=== PATIENT | female | born 1995 | race Caucasian/White ===

== ENCOUNTER 2017-03-28 20:37 | Emergency (ER) | payer MEDICAID, OTHER ==
[~2017-03-28] VITALS: Ht 157.5 cm; Wt 89.5 kg
[~2017-03-28 20:37] MED LIST: ACET50TA PO; IBUP-1114 PO; PRENTAB9 PO
[2017-03-28 20:38] VITALS: BP 142/67
[2017-03-28] MEDS ORDERED: NITR100C39 PO (20:49)
[2017-03-28] MEDS ORDERED: AZITHROMYCIN 250 MG TAB PO ONE (21:30)
[2017-03-28] MEDS ORDERED: ALBUTEROL 90 MCG/ACT 8GM HFA INHALER INH ONE (21:30)
[2017-03-28] MEDS ORDERED: ZITHTAB PO (21:40)
[2017-03-28] MEDS ORDERED: ALBU17IN2 INH (21:40)
== END 2017-03-28 21:55 | disposition home or self-care (01) ==
LOC: M ED 20:37
DX: O99.53 Diseases of the respiratory system complicating the puerperium (principal); O23.593 Infection of other part of genital tract in pregnancy, third trimester; Z3A.31 31 weeks gestation of pregnancy; Z79.899 Other long term (current) drug therapy

== ENCOUNTER 2017-04-13 13:21 | Emergency (ER) | payer OTHER ==
[~2017-04-13] VITALS: Ht 157.5 cm; Wt 100.4 kg
[~2017-04-13 13:21] MED LIST changes: +ALBU17IN2 INH; +NITR100C39 PO; +ZITHTAB PO
[2017-04-13] MEDS ORDERED: CHEW500C2 PO (13:28)
[2017-04-13] MEDS ORDERED: PRENTAB55 PO (13:28)
[2017-04-13] MEDS ORDERED: LIDOCAINE 2% MDV 20 ML VIAL SC ONE (14:15)
[2017-04-13] MEDS ORDERED: CEPH500T PO (14:49)
[2017-04-13] MEDS ORDERED: ACYC800T PO (14:49)
[2017-04-13 15:00] VITALS: BP 140/77
== END 2017-04-13 15:01 | disposition home or self-care (01) ==
LOC: M ED 13:21
DX: O99.713 Diseases of the skin and subcutaneous tissue complicating pregnancy, third trimester (principal); O23.593 Infection of other part of genital tract in pregnancy, third trimester; O99.513 Diseases of the respiratory system complicating pregnancy, third trimester; Z3A.34 34 weeks gestation of pregnancy; O99.333 Smoking (tobacco) complicating pregnancy, third trimester; Z79.899 Other long term (current) drug therapy

== ENCOUNTER 2017-05-05 21:06 | Outpatient (CLI) | payer OTHER ==
[~2017-05-05] VITALS: Ht 157.5 cm; Wt 103.0 kg
[~2017-05-05 21:06] MED LIST changes: +ACYC800T PO; +CEPH500T PO; +CHEW500C2 PO; +PRENTAB55 PO
[2017-05-05 21:20] VITALS: BP 132/59
== END 2017-05-05 22:45 | disposition home or self-care (01) ==
LOC: M LDO 21:06
PROVIDERS: ATTEND Obstetrics & Gynecology
DX: O26.893 Other specified pregnancy related conditions, third trimester (principal); R10.9 Unspecified abdominal pain; O47.03 False labor before 37 completed weeks of gestation, third trimester; Z3A.36 36 weeks gestation of pregnancy

== ENCOUNTER → 2017-05-10 | Outpatient (REF) | payer OTHER ==
[~2017-05-10] MED LIST changes: +ANTA500C PO; +OMEP40CA2 PO
== END ==
LOC: M LAB REF 13:06
PROVIDERS: ATTEND Advanced Practice Midwife
DX: Z34.83 Encounter for supervision of other normal pregnancy, third trimester (principal)

== ENCOUNTER 2017-05-31 12:22 | Inpatient (IN) | payer OTHER ==
[~2017-05-31] VITALS: Ht 157.5 cm; Wt 106.6 kg
[~2017-05-31 12:22] MED LIST changes: -ANTA500C PO; -OMEP40CA2 PO
[2017-05-31] MEDS ORDERED: OMEP40CA2 PO (12:57)
[2017-05-31] MEDS ORDERED: ANTA500C PO (12:57)
[2017-05-31] MEDS ORDERED: LACTATED RINGER'S 1000 ML IV STA (13:44)
[2017-05-31] MEDS ORDERED: LR 1,000 ML IV SCH ×2 (13:44→14:00)
[2017-05-31] MEDS ORDERED: OXYTOCIN DRIP 30 UNITS in APPROPRIATE DILUENT 1 EA IV SCH (14:00)
--- NOTE | 2017-05-31 14:41 | HPEPDOC ---
[facility] Medical History & Physical Date of Admission May 31, 2017 Attending Physician: Yvonne Garcia CNM History and Physical HISTORY & PHYSICAL EXAMINATION 21-year-old, 3, para 1011, at 40-2/7 weeks gestation by first trimester sonogram performed at 6 weeks 6 days on 10/09/2016 for an estimated date of delivery of 05/29/2017 presents for elective induction of labor at term. Upon evaluation, she is 3 cm, 50 % effaced, -3 station. She reports active movement. Denies loss of fluid or bleeding. Last normal menstrual period unknown. care was initiated in [place]. Transferred to a woman's perspective at 37 weeks. She has received sporadic care . Prepregnancy weight was reportedly 147. Last in office weight 238. She has been normotensive through the . Last office visit was at 39 weeks 5 days on 05/27/2017. Anatomy scan within normal limits. OBSTETRIC HISTORY: 2015 early miscarriage. July 2016, normal spontaneous vaginal delivery at term, 5 lbs. 15 oz. female. Reports depression. ALLERGIES: No known drug allergies. MEDICAL HISTORY: Asthma, depression, seasonal allergies FAMILY HISTORY: Mental illness, diabetes, thyroid disorders and autism. SOCIAL HISTORY: Single. Family is present and supportive. Reports smoking one half pack per day during . Denies alcohol or drug usage. OBJECTIVE: Labs are O+, antibody negative. Initial hemoglobin and hematocrit 11.1, and 33.8 with platelets of 253. Rubella non-immune. VDRL, hepatitis B, hepatitis C, HIV, gonorrhea, Chlamydia all negative. She was determined to be negative for cystic fibrosis carrier. She was too late for genetic screening. Glucose screen was not performed. Group B strep is negative. VITAL SIGNS: Stable. She is in no apparent distress, coping well. Breast exam was deferred. Abdomen is soft, nontender, gravid, longitudinal lie, vertex by Julian. Contractions none noted on monitor. heart 145, moderate variability with accelerations, category 1 tracing. Sterile vaginal exam: 3 cm, 50 % effaced, -3 station, intact membranes and cephalic. ASSESSMENT: 21-year-old, 3 para 1011 at 40 weeks. 2 days gestation, for elective induction of labor, category 1 tracing. PLAN: Admit per consultation Dr. Al, who is aware of patient's status. Pitocin induction of labor. Patient is considering IV pain management versus epidural. Anticipate normal spontaneous vaginal . Laboratory Data Labs 24H Laboratory Tests 2 05/31/17 13:37: Serology Scanned Report Hepatitis B Testing Admission labs are pending Home Medications Scheduled Omeprazole (Omeprazole) 40 Mg Cap, 40 MG PO DAILY Miscellaneous Medications Calcium Carbonate (Antacid) 500 Mg Chw, 500 MG PO Allergies Coded Allergies: No Known Allergies (Unverified , 04/13/17) Yvonne Garcia CNM May 31, 2017 14:40
[2017-05-31] MEDS ORDERED: ACETAMINOPHEN 500 MG TAB PO PRN (15:45)
[2017-05-31 16:05] LABS: MEAN CORPUSCULAR HEMOGLOBIN 28.5 pg (27.0-33.0); MEAN CORPUSCULAR HGB CONC 32.4 g/dl (32.0-36.5); RED CELL DISTRIBUTION WIDTH 15.3 % (11.5-14.5); WHITE BLOOD COUNT 8.6 10^3/uL (4.0-10.0)
[2017-05-31 19:14] VITALS: BP 118/75
--- NOTE | 2017-05-31 19:43 | IPNPDOC ---
Date Seen The patient was seen on 05/31/17. Progress Note SUBJECTIVE: Patient is a 21-year-old @ 40w2d for IOL. OBJECTIVE PHYSICAL EXAMINATION: VITAL SIGNS: Please see below. GENERAL: Coping well RESPIRATORY: Breathing with UC ABDOMINAL: UC 2-4 minutes apart. FH 145, moderate variability, + accels. Pitocin @ 8mu SVE: 3/80/-2, more anterior, presenting part well applied to cervix PSYCHOLOGICAL: Family present and supportive. A: Cat I tracing. Labor progress P: Continue Pitocin. Consider AROM VS, I&O, 24H, Fishbone Vital Signs/I&O Vital Signs Date Time Temp Pulse Resp B/P (MAP) Pulse Ox O2 Delivery O2 Flow Rate FiO2 05/31/17 19:14 72 118/75 (89) Laboratory Data 24H LABS Laboratory Tests 2 05/31/17 13:37: Serology Scanned Report Hepatitis B Testing 05/31/17 15:09: Urine Amphetamines Screen NEGATIVE, Urine Benzodiazepines Screen NEGATIVE, Urine Opiates Screen NEGATIVE, Urine Methadone Screen NEGATIVE, Urine Barbiturates Screen NEGATIVE, Urine Phencyclidine Screen NEGATIVE, Urine Cocaine Metabolite Screen NEGATIVE, Urine Cannabinoids Screen NEGATIVE CBC/BMP Laboratory Tests 05/31/17 15:50 Red Blood Count 3.93 L, Mean Corpuscular Volume 88.0, Mean Corpuscular Hemoglobin 28.5, Mean Corpuscular Hemoglobin Concent 32.4, Red Cell Distribution Width 15.3 H Yvonne Garcia CNM May 31, 2017 19:43
[2017-05-31 20:11] VITALS: BP 108/74
[2017-05-31] MEDS ORDERED: FIORICET TAB PO ONE (20:15)
--- NOTE | 2017-05-31 21:19 | DS.PDOC ---
Discharge Summary General Date of Admission May 31, 2017 at 12:22 Date of Discharge 05/31/2017 Attending Physician: Yvonne Garcia CNM Discharge Summary PROCEDURES PERFORMED DURING STAY: None. ADMITTING DIAGNOSES: 1. . @ 40w2d for elective induction of labor DISCHARGE DIAGNOSES: 1. IUP @ [id number]. 2. Reassuring maternal status. 3. . COMPLICATIONS/CHIEF COMPLAINT: Induction at patient request. Discharge at patient request. HISTORY OF PRESENT ILLNESS: A 21-year-old 3, para 1011, admitted at 40 weeks 2 days for elective induction of labor at patient request due to hip pain. care was started in [place]. Patient transferred to woman's perspective at 37 weeks. She requested induction due to severe hip pain. HOSPITAL COURSE: After a reactive nonstress test, Pitocin induction of labor was initiated after consultation with Dr. Al. After approximately 6 hours of Pitocin. heart remained reassuring. Contractions were every 2-4 minutes. Patient was without discomfort. She was requesting discharge. I consulted Dr. Al. In view of normotensive patient's status and reassuring maternal status, it was decided that patient could be discharged home. DISCHARGE MEDICATIONS: Please see below. ALLERGIES: Please see below. PHYSICAL EXAMINATION ON DISCHARGE: VITAL SIGNS: Please see below. GENERAL: No apparent distress HEENT: Noncontributory ABDOMINAL EXAMINATION: Abdomen soft, gravid, longitudinal lie contractions diminishing after Pitocin was discontinued. heart remained reassuring, category 1. Fetus active SVE: 3+/80/-2, more midline. Cephalic. Membranes intact. LABORATORY DATA: Please see below. ACTIVITY: Routine precautions were reviewed. Patient instructed to call the office on Saturday for an appointment. Daily kick counts were stressed. DIET: Regular. DISCHARGE PLAN: Discharge home, signs of labor and warnings were reviewed. Daily daily kick counts reviewed. Induction rescheduled at 41 weeks. DISPOSITION: Home DISCHARGE CONDITION: Stable. Vital Signs/I&Os Vital Signs Date Time Temp Pulse Resp B/P (MAP) Pulse Ox O2 Delivery O2 Flow Rate FiO2 05/31/17 20:15 18 05/31/17 20:11 63 108/74 (85) Laboratory Data Labs 24H Laboratory Tests 2 05/31/17 13:37: Serology Scanned Report Hepatitis B Testing 05/31/17 15:09: Urine Amphetamines Screen NEGATIVE, Urine Benzodiazepines Screen NEGATIVE, Urine Opiates Screen NEGATIVE, Urine Methadone Screen NEGATIVE, Urine Barbiturates Screen NEGATIVE, Urine Phencyclidine Screen NEGATIVE, Urine Cocaine Metabolite Screen NEGATIVE, Urine Cannabinoids Screen NEGATIVE CBC/BMP Laboratory Tests 05/31/17 15:50 Red Blood Count 3.93 L, Mean Corpuscular Volume 88.0, Mean Corpuscular Hemoglobin 28.5, Mean Corpuscular Hemoglobin Concent 32.4, Red Cell Distribution Width 15.3 H Discharge Medications Scheduled Omeprazole (Omeprazole) 40 Mg Cap, 40 MG PO DAILY, (Reported) Miscellaneous Medications Calcium Carbonate (Antacid) 500 Mg Chw, 500 MG PO, (Reported) Allergies Coded Allergies: No Known Allergies (Unverified , 04/13/17) Yvonne Garcia CNM May 31, 2017 21:19
[2017-06-01] MEDS ORDERED: ADACEL/BOOSTRIX VACCINE (DIPHTH/PERTUSS/ACELL/TETANUS)0.5ML SYR (90715) IM ONE (09:00)
[2017-06-02] MEDS ORDERED: INFLUENZA QUADRIVALENT PF VACCINE 0.5ML SYRINGE (90686) IM ONE (09:00)
== END 2017-05-31 21:35 | disposition home or self-care (01) | DRG 566 ==
LOC: M LDI 12:22
PROVIDERS: ADMIT Advanced Practice Midwife; ATTEND Advanced Practice Midwife
PROC: 3E033VJ Introduction of Other Hormone into Peripheral Vein, Percutaneous Approach (ICD-10-PCS; principal; 2017-05-31)
DX: O48.0 Post-term pregnancy (principal); O26.893 Other specified pregnancy related conditions, third trimester; F17.200 Nicotine dependence, unspecified, uncomplicated; Z3A.40 40 weeks gestation of pregnancy; O99.334 Smoking (tobacco) complicating childbirth; Z79.899 Other long term (current) drug therapy; O61.0 Failed medical induction of labor; M25.559 Pain in unspecified hip

== ENCOUNTER 2017-06-03 03:16 | Inpatient (IN) | payer OTHER ==
[2017-06-03] VITALS (12 sets, daily range): BP systolic 107–130; BP diastolic 55–69
[~2017-06-03] VITALS: Ht 157.5 cm; Wt 109.0 kg
[~2017-06-03 03:16] MED LIST changes: +ANTA500C PO; +OMEP40CA2 PO
[2017-06-03] MEDS ORDERED: LACTATED RINGER'S 1000 ML IV STA (04:11)
[2017-06-03] MEDS ORDERED: LR 1,000 ML IV SCH (04:11)
[2017-06-03] MEDS ORDERED: BUTORPHANOL 2 MG/ML INJ (J0595) IV ONE (04:15)
[2017-06-03] MEDS ORDERED: PROMETHAZINE INJ 25 MG/ML VIAL (J2550) IV ONE (04:15)
[2017-06-03] MEDS ORDERED: OXYTOCIN DRIP 30 UNITS in APPROPRIATE DILUENT 1 EA IV SCH (04:15)
--- NOTE | 2017-06-03 04:38 | HPEPDOC ---
[facility] Medical History & Physical Date of Admission Jun 03, 2017 Other Provider Yvonne Garcia CNM History and Physical CHIEF COMPLAINT: Labor HISTORY OF PRESENT ILLNESS: 21-year-old 3, para 1011, estimated date of delivery 05/29/2017, presents at 40 weeks and 5 days with complaints of contractions and increased mucous discharge. Fetus is active. Last menstrual period unknown dated by sonogram on 10/09/2016 at 6 weeks 6 days for an estimated date of delivery of 05/29/2017. Anatomy scan within normal limits. Initial care was obtained in [place]; transferred to woman's perspective at 37 weeks. She had sporadic care OB HISTORY: 2014, early miscarriage. July 2016 normal spontaneous vaginal delivery, viable female child at 40 weeks, 5 lbs. 15 oz. PAST MEDICAL HISTORY: 1. depression. 2. Asthma. PAST SURGICAL HISTORY: 1. None. SOCIAL HISTORY: Marital status: Single. Resides in: [place] Children: 1 Tobacco use: Reports one half pack per day during ETOH: Denies Illicit drug use: Denies Other relevant social factors: Poor compliance with care FAMILY HISTORY: Diabetes, mental illness, thyroid disease, and autism ALLERGIES: Please see below. HOME MEDICATIONS: Please see below. PHYSICAL EXAMINATION: VITAL SIGNS: Vital signs as below GENERAL APPEARANCE: Mild discomfort. Obese HEENT: Within normal limits. CARDIOVASCULAR: Heart rate regular. ABDOMEN: Soft, gravid, longitudinal lie. Contractions every 5-7 minutes, mild to palpation. heart 145, moderate variability with accelerations Sterile vaginal exam unchanged from Saturday 3-4 cm, 80% effaced, -3 station LABORATORY DATA: See below. labs O+, antibody negative, rubella nonimmune, VDRL, hep B, hep C, HIV, gonorrhea and chlamydia were all negative. Cystic fibrosis carrier negative. Glucose test was not done, and group B strep is negative. Prepregnancy weight was reported at 147 pounds. Weight upon transfer to woman's perspective was 230 pounds. Last office weight was 238 pounds. MICROBIOLOGY: Please see below. ASSESSMENT: A 21-year-old 3, para 1011 at 40 weeks and 5 days gestation in early labor. Category 1 tracing. . PLAN: 1. Admit IV and labs to be drawn. Augmentation of labor with Pitocin. Patient desires IV pain management at this time. Anticipate normal spontaneous vaginal delivery. Laboratory Data Labs 24H Laboratory Tests 2 06/03/17 04:12: Serology Scanned Report Hepatitis B Testing Home Medications Scheduled Omeprazole (Omeprazole) 40 Mg Cap, 40 MG PO DAILY Miscellaneous Medications Calcium Carbonate (Antacid) 500 Mg Chw, 500 MG PO Allergies Coded Allergies: No Known Allergies (Unverified , 04/13/17) Yvonne Garcia CNM Jun 03, 2017 04:38
[2017-06-03 05:37] LABS: MEAN CORPUSCULAR HEMOGLOBIN 28.8 pg (27.0-33.0); MEAN CORPUSCULAR HGB CONC 32.9 g/dl (32.0-36.5); MEAN CORPUSCULAR VOLUME 87.5 fl (80.0-96.0); RED CELL DISTRIBUTION WIDTH 15.5 % (11.5-14.5); WHITE BLOOD COUNT 11.5 10^3/uL (4.0-10.0)
[2017-06-03 07:25] LABS: CORD GAS ABE A -7.6; CORD GAS HCO3 A 21.2 MEQ/L; CORD GAS O2 SAT A 77.2 %; CORD GAS PCO2 A 54.8 mmHg; CORD GAS PH A 7.206 UNITS; CORD GAS PO2 A 36.3 mmHg; CORD GAS TCO2 A 22.9 MEQ/L
[2017-06-03 07:26] LABS: CORD GAS ABE V -6.8; CORD GAS HCO3 V 18.6 MEQ/L; CORD GAS O2 SAT V 88.6 %; CORD GAS PCO2 V 37.7 mmHg; CORD GAS PH V 7.312 UNITS; CORD GAS PO2 V 45.9 mmHg; CORD GAS SBC V 18.9 MEQ/L; CORD GAS TCO2 V 19.8 MEQ/L
--- NOTE | 2017-06-03 07:33 | IPNPDOC ---
Text Note Date of Service The patient was seen on 06/03/17. NOTE Delivery Note Date of Service 06/03/2017 21 year old 3, para 2, 012, spontaneous onset of labor at 40 weeks 5 days. Spontaneous rupture of membranes June 03 at 4 AM, clear, moderate amount. Utilized Stadol and Phenergan for labor coping. Multiple deep variable and late decelerations nonresponsive to IV fluid hydration, oxygen by mask and position change. Dr. Al requested to attend. Rim of cervix reduced with maternal pushing and bearing down efforts @ 0640. Fully dilated O6 40. Dr Al arrived in room with . Viable male delivered in TIMBO without difficulty at 0 648. Spontaneous respirations with stimulation. Transitioned on maternal abdomen. Cord doubly clamped and cut by grandmother under my direction once pulsations ceased. scores 9 and 9. Placenta Gray intact with 3-vessel cord at 0654. Marginal cord insertion noted. Multiple calcifications. Fundus firmed with massage and intravenous pitocin bolus. Estimated blood loss 350 mL. Perineum, cervix and vagina inspected. First degree left sulcus laceration noted, repaired with 3-0 Vicryl Rapide after infiltration with lidocaine. Sponge, sharp and instrument count correct. weight 7 pounds 7 ounces, 3380 grams. Cord gases are pending. VS,Fishbone, I+O VS, Fishbone, I+O Laboratory Tests 06/03/17 05:30 Red Blood Count 3.51 L, Mean Corpuscular Volume 87.5, Mean Corpuscular Hemoglobin 28.8, Mean Corpuscular Hemoglobin Concent 32.9, Red Cell Distribution Width 15.5 H Vital Signs Date Time Temp Pulse Resp B/P (MAP) Pulse Ox O2 Delivery O2 Flow Rate FiO2 06/03/17 05:51 20 06/03/17 05:42 85 128/68 (88) 06/03/17 03:39 98.3 I&O- Last 24 Hours up to 6 AM 06/04/17 06:00 Output Total 350 ml Balance -350 ml Yvonne Garcia CNM Jun 03, 2017 07:31
[2017-06-03] MEDS ORDERED: METHYLERGONOVINE MALEATE 0.2 MG TAB PO PRN (07:45)
[2017-06-03] MEDS ORDERED: LIDOCAINE 1% MDV INJ 50 ML VIAL INFIL ONE (07:45)
[2017-06-03] MEDS ORDERED: DIBUCAINE 1% OINTMENT 30GM TOP PRN (07:45)
[2017-06-03] MEDS ORDERED: ANUSOL HC CREAM 30GM TOP PRN (07:45)
[2017-06-03] MEDS ORDERED: ACETAMINOPHEN 500 MG TAB PO PRN (07:45)
[2017-06-03] MEDS ORDERED: MEASLES,MUMPS,RUBELLA VACCINE INJ (MMR-II) (90707) SC SCH (07:45)
[2017-06-03] MEDS ORDERED: RHOGAM 300 MCG (1500 IU) INJ (J2790) IM SCH (07:45)
[2017-06-03] MEDS ORDERED: MOM 30ML SUSPENSION UDC PO PRN (07:45)
[2017-06-03] MEDS ORDERED: DOCUSATE SODIUM 100 MG CAP PO PRN (07:45)
[2017-06-03] MEDS ORDERED: medroxyPROGESTERone ACET IM SUSP 150 MG/ML VIAL (J1050) IM ONE (07:45)
[2017-06-03] MEDS: PRENATAL VITAMINS CHEWABLE TABLET PO SCH (10:12)
[2017-06-03] MEDS: IBUPROFEN 800 MG TAB PO PRN ×2 (17:04→20:09)
[2017-06-04 06:02] VITALS: BP 111/58
[2017-06-04] MEDS: PRENATAL VITAMINS CHEWABLE TABLET PO SCH (07:45)
[2017-06-04] MEDS: IBUPROFEN 800 MG TAB PO PRN (07:45)
[2017-06-04] MEDS ORDERED: ACET50TA PO (09:45)
[2017-06-04] MEDS ORDERED: IBUP-1114 PO (09:46)
[2017-06-04] MEDS ORDERED: medroxyPROGESTERone ACET IM SUSP 150 MG/ML VIAL (J1050) IM ONE (10:15)
[2017-06-04] MEDS ORDERED: ADACEL/BOOSTRIX VACCINE (DIPHTH/PERTUSS/ACELL/TETANUS)0.5ML SYR (90715) IM ONE (10:30)
[2017-06-04] MEDS ORDERED: INFLUENZA QUADRIVALENT PF VACCINE 0.5ML SYRINGE (90686) IM ONE (10:30)
[2017-06-07 00:07] LABS: GC Butalbital 416 ng/mL (Cutoff=200)
== END 2017-06-04 10:30 | disposition home or self-care (01) | DRG 560 ==
LOC: M LDO 03:16 → M LDI 04:09 → M OBS 08:45
PROVIDERS: ADMIT Advanced Practice Midwife; ATTEND Advanced Practice Midwife
PROC: 10E0XZZ Delivery of Products of Conception, External Approach (ICD-10-PCS; principal; 2017-06-03)
PROC: 0HQ9XZZ Repair Perineum Skin, External Approach (ICD-10-PCS; 2017-06-03)
PROC: 3E033VJ Introduction of Other Hormone into Peripheral Vein, Percutaneous Approach (ICD-10-PCS; 2017-06-03)
DX: O48.0 Post-term pregnancy (principal); Z37.0 Single live birth; Z3A.40 40 weeks gestation of pregnancy; F17.200 Nicotine dependence, unspecified, uncomplicated; O99.334 Smoking (tobacco) complicating childbirth; Z91.19 Patient's noncompliance with other medical treatment and regimen; O09.33 Supervision of pregnancy with insufficient antenatal care, third trimester; O70.0 First degree perineal laceration during delivery

== ENCOUNTER 2017-09-01 11:34 | Emergency (ER) | payer OTHER ==
[2017-09-01] MEDS ORDERED: diazePAM 5 MG TAB PO (15:45)
[2017-09-01] MEDS: predniSONE 20 MG TAB PO (16:04)
[2017-09-01] MEDS: NORCO, ANEXSIA 5/325MG TABLET (HYDROcodone/ACETAMINOPHEN) PO (16:04)
[2017-09-01] MEDS: NORCO 5/325MG TABLET (BULK FOR ED) PO (17:00)
== END 2017-09-01 17:10 | disposition home or self-care (01) ==
LOC: M ED 11:34
DX: M54.9 Dorsalgia, unspecified (principal); G89.29 Other chronic pain; R51 Headache; J45.909 Unspecified asthma, uncomplicated; F41.9 Anxiety disorder, unspecified; F32.9 Major depressive disorder, single episode, unspecified; F17.200 Nicotine dependence, unspecified, uncomplicated
CPT/HCPCS: 99283

== ENCOUNTER 2018-09-09 22:24 | Outpatient (CLI) | payer OTHER ==
[~2018-09-09] VITALS: Ht 157.5 cm; Wt 101.0 kg
[~2018-09-09 22:24] MED LIST changes: -ACET50TA PO; +CYCL5TAB; +FLUO40CA; +KETO10TAB; +MAPA500T2 PO; +NORCOTAB PO; +PRED20TA PO; +VALI5TAB PO
[2018-09-10 00:27] VITALS: BP 134/73
== END 2018-09-10 00:15 | disposition home or self-care (01) ==
LOC: M LDO 22:24
PROVIDERS: ATTEND Specialist
DX: O99.89 Other specified diseases and conditions complicating pregnancy, childbirth and the puerperium (principal); R60.0 Localized edema; R10.9 Unspecified abdominal pain; Z3A.37 37 weeks gestation of pregnancy

== ENCOUNTER 2018-09-16 19:47 | Outpatient (CLI) | payer OTHER ==
[~2018-09-16] VITALS: Ht 157.5 cm; Wt 100.9 kg
[2018-09-16 20:03] VITALS: BP 94/48
[2018-09-16 21:03] VITALS: BP 139/76
[2018-09-16 21:10] VITALS: BP 121/74
== END 2018-09-16 23:55 | disposition home or self-care (01) ==
LOC: M LDO 19:47
PROVIDERS: ATTEND Obstetrics & Gynecology
DX: O47.9 False labor, unspecified (principal); Z3A.38 38 weeks gestation of pregnancy

== ENCOUNTER 2018-09-25 23:34 | Outpatient (CLI) | payer OTHER ==
[~2018-09-25] VITALS: Ht 157.5 cm; Wt 100.5 kg
[2018-09-26 00:01] VITALS: BP 133/61
== END 2018-09-26 02:55 | disposition home or self-care (01) ==
LOC: M LDO 23:34
PROVIDERS: ATTEND Obstetrics & Gynecology
DX: O47.1 False labor at or after 37 completed weeks of gestation (principal); Z3A.39 39 weeks gestation of pregnancy

== ENCOUNTER 2018-09-29 14:14 | Inpatient (IN) | payer OTHER ==
[~2018-09-29] VITALS: Ht 157.5 cm; Wt 100.5 kg
[2018-09-29] VITALS (12 sets, daily range): BP systolic 87–130; BP diastolic 50–77
[2018-09-29] MEDS ORDERED: PENICILLIN G POTASSIUM IV 5 MU in D5W MINI-BAG PLUS 100 ML IV STA (15:37)
[2018-09-29] MEDS ORDERED: OXYTOCIN DRIP 30 UNITS in APPROPRIATE DILUENT 1 EA IV SCH (15:45)
--- NOTE | 2018-09-29 17:01 | HPEPDOC ---
Obstetrical History & Physical General Date of Admission Sep 29, 2018 at 15:47 Primary Care Physician: WALLY JIN CNM History of Present Illness Patient is a 23-year-old female who is a at 40.2 weeks gestation with an ESTELLA of 09/27/18 based off of her LMP. She initiated care in her first trimester in [place]. She has had a total of 6 visits. She presented to L&D via ambulance with complaints of contractions. She reports active movement and declines leaking of fluid or vaginal bleeding. She has not been compliant with care. Chief Complaint: Active Labor Information Provided By: Patient Age: 23 : 4 Term: 2 Pre-term: 0 Abortions: 1 Livin Care Care: Limited Care Dating Final EDC: Sep 27, 2018 Final EDC by: LMP LMP: Dec 20, 2017 EGA at Admission: 40.2 Antepartum Course Height (inches): 62 Pre- weight (lbs.): 230 Admission Weight (lbs.): 220 Past Medical History Past Obstetrical History #1: Date of Delivery: Apr 22, 2015 Complications: Yes (SAB) Past Obstetrical History #2: Date of Delivery: Jul 11, 2016 Gestation: 40 Type of Delivery: Spontaneous Vaginal Del. Sex of : Female (5 lbs 15 oz) Complications: Yes (SGA) Past Obstetrical History #3: Past Obstetrical History: Multigravida Date of Delivery: Jun 03, 2017 Gestation: 40 Type of Delivery: Spontaneous Vaginal Del. Sex of Infant: Male (7 lbs. 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 Past Medical History Medical History Asthma and seasonal allergies Family History Significant Family History: Asthma, Hypertension Social History Social history complex social issues; FOB is incarcerated; patient's highest level of education is 10th grade; Marital Status: Single Psychosocial History: Anxiety, Depression * Smoker: current smoker Alcohol: Denies Imunizations Tdap status: current Allergies Coded Allergies: No Known Allergies (Unverified , 09/26/18) Medications No Active Prescriptions or Reported Meds Physical Examination Physical Examination GENERAL: Alert and oriented times three. BREAST: . ABDOMEN: Gravid and non-tender to touch. FETUS: Is vertex (VTX) by sterile vaginal examination (SVE), fetus is vertex (VTX) by Julian. HEART RATE: Regular rate and rhythm. LUNGS: Clear to auscultation (CTA). EXTREMITIES: No edema. No clonus. Deep tendon reflexes (DTRs) + 2. Vital Signs/I&O Vital Signs Date Time Temp Pulse Resp B/P (MAP) Pulse Ox O2 Delivery O2 Flow Rate FiO2 09/29/18 15:32 85 18 121/73 (89) 09/29/18 14:37 98.8 Laboratory Data 24H LABS Laboratory Tests 2 09/29/18 16:36: Serology Scanned Report Hepatitis B Testing Microbiology Microbiology 09/29/18 Group B Streptococcus Screen (LANI), Received Pending Pertinent Laboratoy Data Blood Type: O+ RBC Antibody Screen: Negative HIV: Negative Hepatitis B: Negative Rapid Plasma Reagin: Nonreactive Rubella: Immune Group B Streptococcus: Unknown Vaginal Examination Dilation: 4 cm Effacement: other (75%) Station: -3 Cervical Consistency: Soft Cervical Position: Middle Presentation: Cephalic presentation Position: Vertex (occiput) Assessment Heart Rate (FHR): 130 Variability: Moderate Accelerations: Positive Decelerations: None Tocometer Contractions: Yes Frequency: regular Multi-drug resistant Organism: No history of MDRO Assessment/Plan Assessment IUP at 40.2 weeks gestation active labor unknown GBS Category I FHR tracing Plan Admit to L&D. OOB ad josette. Diet: regular then change to clears with start of IV Pitocin. Labs and intravenous (IV) per unit protocol. GBS obtained. Will be treated for GBS prophylaxis. Counseled on Pitocin for augmentation if needed. Anesthesia consult per patient's request. Anticipate cervical change and . WALLY JIN CNM Sep 29, 2018 17:01
[2018-09-29] MEDS: LR 1,000 ML IV SCH (17:17)
[2018-09-29 17:24] LABS: HEMATOCRIT 32.2 % (36.0-47.0); HEMOGLOBIN 10.8 g/dl (12.0-15.5); MEAN CORPUSCULAR HEMOGLOBIN 30.3 pg (27.0-33.0); MEAN CORPUSCULAR HGB CONC 33.5 g/dl (32.0-36.5); MEAN CORPUSCULAR VOLUME 90.4 fl (80.0-96.0); PLATELET COUNT, AUTOMATED 439 10^3/uL (150-450); RED BLOOD COUNT 3.56 10^6/uL (4.00-5.40); WHITE BLOOD COUNT 9.8 10^3/uL (4.0-10.0)
[2018-09-29] MEDS ORDERED: NICOTINE 21MG/24HR 1 EA TRANSDERMAL TD SCH (21:00)
[2018-09-29] MEDS: PENICILLIN G POTASSIUM IV 2.5 MU in APPROPRIATE DILUENT 1 EA IV SCH (21:06)
[2018-09-29] MEDS ORDERED: PROMETHAZINE INJ 25 MG/ML VIAL (J2550) IV ONE (22:15)
[2018-09-29] MEDS ORDERED: BUTORPHANOL 2 MG/ML INJ (J0595) IV ONE (22:15)
--- NOTE | 2018-09-29 23:16 | IPNPDOC ---
Obstetrical Progress Note Date of Service Sep 29, 2018 Subjective Patient states she wants the Pitocin stopped. States she is very uncomfortable and wants it off so she can get into the shower. Objective Vital Signs Date Time Temp Pulse Resp B/P (MAP) Pulse Ox O2 Delivery O2 Flow Rate FiO2 09/29/18 21:34 88 18 115/66 (82) 09/29/18 20:59 98.5 Assessment Heart Rate (FHR): 120 Variability: Moderate Accelerations: Positive Decelerations: None Heart Rate Tracing: Category I Tocometer Contractions: Yes Frequency: regular, every 1-3 min. Assessment and Plan Age: 23 EGA at Admission: 40.2 Status: Reassuring Group B Streptococcus: Unknown Anticipate: Vaginal Delivery Additional Comments Pitocin turned off per patient's request. Offered IV pain medication or an epidural. Patient just desires to get into the shower to help with her pain. IV saline locked so patient can get into the shower. WALLY JIN CNM Sep 29, 2018 23:15
[2018-09-30] VITALS (38 sets, daily range): BP systolic 93–203; BP diastolic 51–136
[2018-09-30] MEDS: PENICILLIN G POTASSIUM IV 2.5 MU in APPROPRIATE DILUENT 1 EA IV SCH ×3 (01:58→08:59)
[2018-09-30] MEDS: LR 1,000 ML IV SCH ×2 (02:03→08:53)
[2018-09-30] MEDS ORDERED: LR 1,000 ML IV ONE (06:15)
[2018-09-30] MEDS ORDERED: FENTANYL 2MCG/ML ROPIVACAINE 0.2% IN 0.9% NACL 100ML IVBAG As Ordered ONE (07:14)
[2018-09-30] MEDS ORDERED: ePHEDrine SULFATE 25 MG/5 ML(5MG/ML) SYRINGE As Ordered ONE (08:26)
[2018-09-30] MEDS ORDERED: ONDANSETRON 4MG/2ML VIAL (J2405) IV PRN (08:45)
[2018-09-30] MEDS ORDERED: LACTATED RINGER'S 1000 ML IV PRN (08:45)
[2018-09-30] MEDS ORDERED: EPIDURAL/PCA KEYS XX PRN (08:45)
[2018-09-30] MEDS ORDERED: ePHEDrine SULFATE 25 MG/5 ML(5MG/ML) SYRINGE IV PRN (08:45)
[2018-09-30] MEDS ORDERED: NALOXONE INJ 0.4 MG/1 ML VIAL (J2310) IV PRN (08:45)
[2018-09-30] MEDS ORDERED: REFRIGERATOR IV KEYS XX PRN (08:45)
[2018-09-30] MEDS ORDERED: EPIDURAL COMMENT XX SCH (08:45)
[2018-09-30] MEDS ORDERED: diphenhydrAMINE INJ 50MG/ML VIAL (J1200) IV PRN (08:45)
[2018-09-30] MEDS ORDERED: FENTANYL/ROPIVACAINE/NACL BAG 100 ML EPIDURAL SCH (08:45)
[2018-09-30] MEDS: PRENATAL VITAMINS CHEWABLE TABLET PO SCH (09:00)
[2018-09-30] MEDS ORDERED: OXYTOCIN DRIP 30 UNITS in APPROPRIATE DILUENT 1 EA IV SCH (12:35)
[2018-09-30] MEDS ORDERED: ANUSOL HC CREAM 30GM TOP PRN (12:45)
[2018-09-30] MEDS ORDERED: DIBUCAINE 1% OINTMENT 30GM TOP PRN (12:45)
[2018-09-30] MEDS ORDERED: RHOGAM 300 MCG (1500 IU) INJ (J2790) IM SCH (12:45)
[2018-09-30] MEDS ORDERED: MOM 30ML SUSPENSION UDC PO PRN (12:45)
[2018-09-30] MEDS ORDERED: METHYLERGONOVINE MALEATE 0.2 MG TAB PO PRN (12:45)
[2018-09-30] MEDS ORDERED: DOCUSATE SODIUM 100 MG CAP PO PRN (12:45)
[2018-09-30] MEDS ORDERED: MEASLES,MUMPS,RUBELLA VACCINE INJ (MMR-II) (90707) SC SCH (12:45)
--- NOTE | 2018-09-30 18:20 | DN ---
DATE OF PROCEDURE: 09/30/2018 TIME OF : 12:09 GENDER: Female SCORES: 8 and 9. WEIGHT: 2890 grams or 6 pounds 6 ounces. LACERATIONS: None. ESTIMATED BLOOD LOSS: 300 mL. ANESTHESIA: Epidural. COUNTS: Five laparotomy sponges accounted for prior to and after delivery. DELIVERY NOTE: On 09/30/2018 at 12:09 p.m., Ms. Lion, a 23-year-old 4, now para 3 had a spontaneous vaginal delivery of a liveborn female , scores of 8 and 9, weight was 2890 grams or 6 pounds 6 ounces. Head was delivered right occiput anterior (TIMBO) over intact perineum. There was a right compound nuchal arm, which was delivered, along with the anterior shoulder and corpus. Infant was handed to mom with a good cry. Cord was clamped times two, was cut by the support person under my direction. Placenta was then drained and delivered grossly intact. A premixed bag of 500 mL of normal saline was then bolused along with uterine massage until the uterus was firm. On inspection, the cervix, vagina, and perineum was grossly intact and hemostatic. Mom and baby recovering in stable condition. Mom has decided to name her daughter Carol.
[2018-09-30] MEDS: IBUPROFEN 800 MG TAB PO PRN (22:11)
[2018-10-01 06:02] VITALS: BP 125/69
[2018-10-01] MEDS: PRENATAL VITAMINS CHEWABLE TABLET PO SCH (08:06)
[2018-10-01] MEDS ORDERED: NICOTINE 21MG/24HR 1 EA TRANSDERMAL TD SCH (09:00)
[2018-10-01] MEDS: IBUPROFEN 800 MG TAB PO PRN ×2 (09:04→18:28)
[2018-10-01] MEDS: ACETAMINOPHEN 500 MG TAB PO PRN ×2 (10:06→16:36)
[2018-10-01 18:00] VITALS: BP 130/72
[2018-10-02] MEDS: ACETAMINOPHEN 500 MG TAB PO PRN (01:54)
[2018-10-02 06:42] VITALS: BP 126/71
[2018-10-02] MEDS ORDERED: IBUP-1114 PO (08:34)
[2018-10-02] MEDS ORDERED: MAPA500T2 PO (08:34)
[2018-10-02] MEDS ORDERED: PRENTAB9 PO (08:34)
[2018-10-02] MEDS: PRENATAL VITAMINS CHEWABLE TABLET PO SCH (08:41)
[2018-10-02] MEDS: IBUPROFEN 800 MG TAB PO PRN (08:41)
== END 2018-10-02 10:00 | disposition home or self-care (01) | DRG 560 ==
LOC: M LDO 14:14 → M LDI 15:47 → M OBS 09-30 14:35
PROVIDERS: ADMIT Advanced Practice Midwife; ATTEND Advanced Practice Midwife
PROC: 10E0XZZ Delivery of Products of Conception, External Approach (ICD-10-PCS; principal; 2018-09-30)
DX: O48.0 Post-term pregnancy (principal); O32.6XX0 Maternal care for compound presentation, not applicable or unspecified; Z37.0 Single live birth; Z3A.40 40 weeks gestation of pregnancy; O09.33 Supervision of pregnancy with insufficient antenatal care, third trimester

== ENCOUNTER 2019-03-11 14:34 | Emergency (ER) | payer OTHER ==
[~2019-03-11] VITALS: Ht 157.5 cm; Wt 85.9 kg
[~2019-03-11 14:34] MED LIST changes: -ANTA500C PO; +CALC1CHW3 PO; +HYDR-3715 PO; -NORCOTAB PO
[2019-03-11 14:35] VITALS: BP 124/56
[2019-03-11] MEDS ORDERED: DICL10TA PO (14:42)
[2019-03-11] MEDS ORDERED: NS 1,000 ML IV ONE (15:45)
[2019-03-11 16:08] LABS: BASO % 0.3 % (0.0-1.0); EOS # 0.1 10^3/uL (0.0-0.50); EOS % 1.7 % (0.0-3.0); HEMATOCRIT 35.8 % (36.0-47.0); HEMOGLOBIN 11.8 g/dl (12.0-15.5); LYMPH # 1.6 10^3/uL (1.5-6.5); LYMPH % 20.3 % (24.0-44.0); MEAN CORPUSCULAR HEMOGLOBIN 30.2 pg (27.0-33.0); MEAN CORPUSCULAR VOLUME 91.6 fl (80.0-96.0); MONO # 0.6 10^3/uL (0.0-0.8); MONO % 8.4 % (0.0-5.0); NEUTROPHILS # 5.3 10^3/uL (1.8-7.7); NEUTROPHILS % 68.8 % (36.0-66.0); PLATELET COUNT, AUTOMATED 259 10^3/uL (150-450); RED BLOOD COUNT 3.91 10^6/uL (4.00-5.40); WHITE BLOOD COUNT 7.6 10^3/uL (4.0-10.0)
[2019-03-11 16:39] LABS: BLOOD UREA NITROGEN 7 MG/DL (7-18); CALCIUM LEVEL 8.7 MG/DL (8.5-10.1); CARBON DIOXIDE LEVEL 24 MEQ/L (21-32); CHLORIDE LEVEL 107 MEQ/L (98-107); CREATININE FOR GFR 0.66 MG/DL (0.55-1.30); GLOMERULAR FILTRATION RATE > 60.0 (>60); GLUCOSE, FASTING 80 MG/DL (70-100); POTASSIUM SERUM 4.1 MEQ/L (3.5-5.1); SODIUM LEVEL 138 MEQ/L (136-145)
[2019-03-11] MEDS ORDERED: KEFL250C11 PO (17:05)
[2019-03-11 17:27] LABS: HCG, SERUM QUANTITATIVE 35163 MIU/ML
--- NOTE | 2019-03-11 17:47 | REP ---
Emergency first trimester obstetric sonography: History: Abdominal cramping. Findings: Transabdominal scanning demonstrates a single living intrauterine gestation. [place]-rump length of the embryonic pole is 59 mm. This corresponds with a gestational age estimate of 12 weeks 3 days. heart rate is recorded at 153 beats per minute. motion is observed. No gross anomaly is seen. There is a 1.3 x 1.6 x 0.5 cm anechoic fluid collection adjacent to the gestational sac superiorly. There is a 2.0 cm cystic area in the maternal left ovary consistent with corpus luteum. Impression: Viable single intrauterine gestation at 12 weeks 3 days by a crown-rump length. ESTELLA by today's sonography September 20, 2019. There is a 1.6 cm cystic area adjacent to the gestational sac superiorly. Electronically Signed by Jonathan Barrios MD 03/12/2019 07:59 A
== END 2019-03-11 17:00 | disposition left against medical advice (07) ==
LOC: M ED 14:34
DX: O99.89 Other specified diseases and conditions complicating pregnancy, childbirth and the puerperium (principal); R82.71 Bacteriuria; Z3A.12 12 weeks gestation of pregnancy; O99.331 Smoking (tobacco) complicating pregnancy, first trimester; F17.210 Nicotine dependence, cigarettes, uncomplicated

== ENCOUNTER → 2019-05-30 | Outpatient (REF) | payer OTHER ==
[~2019-05-30] MED LIST changes: +DICL10TA PO; +KEFL250C11 PO
== END ==
LOC: M SFHCLERA 16:39
PROVIDERS: ATTEND Nurse Practitioner
DX: J02.9 Acute pharyngitis, unspecified (principal)

== ENCOUNTER → 2019-07-11 | Outpatient (CLI) | payer MEDICAID ==
[~2019-07-11] MED LIST changes: -OMEP40CA2 PO; +OMEP40CA97 PO
[2019-07-11 11:08] LABS: APPEARANCE, URINE HAZY (CLEAR); BACTERIA, URINE AUTO NEGATIVE (NEGATIVE); BILIRUBIN, URINE AUTO NEGATIVE (NEGATIVE); BLOOD, URINE BLOOD NEGATIVE (NEGATIVE); COLOR, URINE YELLOW (YELLOW); GLUCOSE, URINE (UA) AUTO NEGATIVE (NEGATIVE); KETONE, URINE AUTO TRACE mg/dL (NEGATIVE); LEUKOCYTE ESTERASE, URINE AUTO 1+ (NEGATIVE); MUCUS, URINE SMALL (NEGATIVE); NITRITE, URINE AUTO NEGATIVE (NEGATIVE); PROTEIN, URINE AUTO NEGATIVE (NEGATIVE); RBC, URINE AUTO 5 /HPF (0-3); SPECIFIC GRAVITY URINE AUTO 1.019 (1.002-1.035); SQUAMOUS EPITHELIAL CELL UR AU 11 /HPF (0-6); UROBILINOGEN, URINE AUTO 0.2 mg/dL (0.0-2.0); WBC, URINE AUTO 18 /HPF (0-3)
[2019-07-11 11:09] LABS: BASO % 0.2 % (0.0-1.0); EOS # 0.1 10^3/uL (0.0-0.5); HEMATOCRIT 34.7 % (36.0-47.0); HEMOGLOBIN 11.2 g/dl (12.0-15.5); LYMPH # 1.7 10^3/uL (1.5-5.0); LYMPH % 15.2 % (24.0-44.0); MEAN CORPUSCULAR HEMOGLOBIN 31.2 pg (27.0-33.0); MEAN CORPUSCULAR HGB CONC 32.3 g/dl (32.0-36.5); MEAN CORPUSCULAR VOLUME 96.7 fl (80.0-96.0); MONO # 0.5 10^3/uL (0.0-0.8); MONO % 4.4 % (0.0-5.0); NEUTROPHILS # 8.8 10^3/uL (1.5-8.5); NEUTROPHILS % 78.8 % (36.0-66.0); PLATELET COUNT, AUTOMATED 307 10^3/uL (150-450); RED BLOOD COUNT 3.59 10^6/uL (4.00-5.40); WHITE BLOOD COUNT 11.2 10^3/uL (4.0-10.0)
[2019-07-13 11:16] LABS: HEPATITIS B SURFACE ANTIGEN NEGATIVE (NEGATIVE); RUBELLA IgG QUALITATIVE IMMUNE (IMMUNE)
[2019-07-13 14:03] LABS: HIV 1&2 SCREEN CENTAUR NEGATIVE (NEGATIVE)
== END ==
LOC: M LAB 10:24
PROVIDERS: ATTEND Obstetrics & Gynecology Obstetrics
DX: Z34.83 Encounter for supervision of other normal pregnancy, third trimester (principal); Z3A.00 Weeks of gestation of pregnancy not specified

== ENCOUNTER 2019-09-23 05:00 | Inpatient (IN) | payer MEDICAID, OTHER ==
[2019-09-23] VITALS (17 sets, daily range): BP systolic 97–158; BP diastolic 52–89
[2019-09-23] MEDS ORDERED: LR 1,000 ML IV SCH (05:25)
[2019-09-23] MEDS ORDERED: LACTATED RINGER'S 1000 ML IV STA (05:25)
[2019-09-23 05:48] LABS: HEMATOCRIT 37.9 % (36.0-47.0); MEAN CORPUSCULAR HEMOGLOBIN 29.7 pg (27.0-33.0); MEAN CORPUSCULAR HGB CONC 31.7 g/dl (32.0-36.5); MEAN CORPUSCULAR VOLUME 93.8 fl (80.0-96.0); PLATELET COUNT, AUTOMATED 372 10^3/uL (150-450); RED BLOOD COUNT 4.04 10^6/uL (4.00-5.40); WHITE BLOOD COUNT 10.3 10^3/uL (4.0-10.0)
[2019-09-23] MEDS ORDERED: FENTANYL 2MCG/ML ROPIVACAINE 0.2% IN 0.9% NACL 100ML IVBAG As Ordered ONE (06:13)
[2019-09-23] MEDS ORDERED: REFRIGERATOR IV KEYS XX PRN (08:15)
[2019-09-23] MEDS ORDERED: EPIDURAL/PCA KEYS XX PRN (08:15)
[2019-09-23] MEDS ORDERED: LACTATED RINGER'S 1000 ML IV PRN (08:15)
[2019-09-23] MEDS ORDERED: FENTANYL/ROPIVACAINE/NACL BAG 100 ML EPIDURAL SCH (08:15)
[2019-09-23] MEDS ORDERED: ONDANSETRON 4MG/2ML VIAL (J2405) IV PRN (08:15)
[2019-09-23] MEDS ORDERED: EPIDURAL COMMENT XX SCH (08:15)
[2019-09-23] MEDS ORDERED: diphenhydrAMINE INJ 50MG/ML VIAL (J1200) IV PRN (08:15)
[2019-09-23] MEDS ORDERED: NALOXONE INJ 0.4 MG/1 ML VIAL (J2310) IV PRN (08:15)
[2019-09-23] MEDS ORDERED: ePHEDrine SULFATE 25 MG/5 ML(5MG/ML) SYRINGE IV PRN (08:15)
[2019-09-23 08:22] LABS: AMPHETAMINES URINE REFLEX NEGATIVE (NEGATIVE); BARBITURATES URINE REFLEX NEGATIVE (NEGATIVE); BENZODIAZEPINES URINE REFLEX NEGATIVE (NEGATIVE); CANNABINOIDS URINE REFLEX NEGATIVE (NEGATIVE); COCAINE METABOLITE URINE REFLE NEGATIVE (NEGATIVE); METHADONE URINE REFLEX NEGATIVE (NEGATIVE); OPIATES URINE REFLEX NEGATIVE (NEGATIVE); PHENCYCLIDINE URINE REFLEX NEGATIVE (NEGATIVE)
[2019-09-23] MEDS: PRENATAL VITAMINS CHEWABLE TABLET PO SCH (09:00)
[2019-09-23] MEDS ORDERED: OXYTOCIN 30 UNITS IN 0.9% NaCl 500ML IV BAG (J2590) As Ordered ONE (10:30)
[2019-09-23 10:49] LABS: CORD GAS ABE V -1.4; CORD GAS HCO3 V 23.8 MEQ/L; CORD GAS O2 SAT V 83.5 %; CORD GAS PCO2 V 41.5 mmHg; CORD GAS PH V 7.376 UNITS; CORD GAS TCO2 V 25.1 MEQ/L
[2019-09-23 10:52] LABS: CORD GAS ABE A -1.9; CORD GAS HCO3 A 23.1 MEQ/L; CORD GAS O2 SAT A 78.9 %; CORD GAS PCO2 A 40.1 mmHg; CORD GAS PH A 7.378 UNITS; CORD GAS PO2 A 30.3 mmHg; CORD GAS SBC A 22.4 MEQ/L; CORD GAS TCO2 A 24.3 MEQ/L
[2019-09-23] MEDS ORDERED: OXYTOCIN DRIP 30 UNITS in IV 1 EA IV ONE (11:15)
[2019-09-23] MEDS ORDERED: MEASLES,MUMPS,RUBELLA VACCINE INJ (MMR-II) (90707) SC SCH (11:30)
[2019-09-23] MEDS ORDERED: DOCUSATE SODIUM 100 MG CAP PO PRN (11:30)
[2019-09-23] MEDS ORDERED: DIBUCAINE 1% OINTMENT 30GM TOP PRN (11:30)
[2019-09-23] MEDS ORDERED: IBUPROFEN 600 MG TAB PO PRN (11:30)
[2019-09-23] MEDS ORDERED: METHYLERGONOVINE MALEATE 0.2 MG TAB PO PRN (11:30)
[2019-09-23] MEDS ORDERED: RHOGAM 300 MCG (1500 IU) INJ (J2790) IM SCH (11:30)
[2019-09-23] MEDS ORDERED: ACETAMINOPHEN TAB 650MG DOSE (2X325MG) PO PRN (11:30)
--- NOTE | 2019-09-23 14:48 | HPE ---
DATE OF ADMISSION: 09/23/2019 Erum is a 24-year-old female, 4, para 3-0-0-3 with an estimated date of confinement (EDC) of 09/20/2019, estimated gestational age (EGA) 40-2/7 weeks' gestation, who presented to labor and delivery with complaints of contractions every 2-3 minutes. Upon evaluation in labor and delivery, she was found to be in active labor. Upon further discussion with the patient. She was a patient [facility]. Was admitted on 09/14/2019 for an induction. The patient had one Cytotec and signed herself out. She presented today in active labor. No bleeding. No rupture of membrane. Good movement. Her record reviewed, essentially unremarkable. As per the patient, she had no issues with the . Her lab reviewed. Blood type is O+, rubella immune, hepatitis negative, HIV negative, gonorrhea culture (GC) and chlamydia negative, group B streptococcus (GBS) is negative. PAST MEDICAL HISTORY: Significant for obesity. PAST SURGICAL HISTORY: Denies. SOCIAL HISTORY: The patient does not have custody of any of her children. She is a smoker. She denies any alcohol or drug use. REVIEW OF SYSTEMS: Unremarkable. MEDICATIONS: - vitamins ALLERGIES: No known drug allergies. PHYSICAL EXAMINATION ON ADMISSION: Obese female in no acute distress. Abdomen: Soft, nontender, nondistended. Extremities: No clubbing, cyanosis, or edema. Vaginal examination: 5 cm, 80%, fetus at -3 station, in vertex position. Tracing reviewed. Category one tracing. ASSESSMENT: Intrauterine at 40-2/7 weeks' gestation in active labor. PLAN: Admit to labor and delivery. Routine laboratories sent. Pain management discussed. The patient opted for an epidural. Will continue to monitor. Anticipate delivery.
--- NOTE | 2019-09-23 18:05 | DN ---
DATE: 09/23/2019 Erum is a 24-year-old female, 4, para 3-0-0-3 who was admitted at 40-2/7 weeks gestation in active labor. She progressed to fully dilated. Artificial rupture of membrane made on the perineum. She then pushed and delivered a live female in left occiput anterior position over an intact perineum. scores of 9 and 9. weight 7 pounds 3 ounces. Placenta delivered spontaneously intact. Three-vessel cord. Perineum, vagina, and cervix inspected. No laceration noted. Estimated blood loss 200 mL. Both mother and baby in stable condition.
[2019-09-23] MEDS: IBUPROFEN 800 MG TAB PO PRN (19:57)
[2019-09-24] MEDS: ACETAMINOPHEN 500 MG TAB PO PRN ×3 (00:57→16:22)
[2019-09-24 05:46] VITALS: BP 133/61
[2019-09-24] MEDS: PRENATAL VITAMINS CHEWABLE TABLET PO SCH (08:41)
[2019-09-24] MEDS: IBUPROFEN 800 MG TAB PO PRN (12:02)
--- NOTE | 2019-09-24 19:34 | REPVR ---
PROCEDURE INFORMATION: Exam: MR Lumbar Spine Without Contrast. Exam date and time: 09/24/2019 6:18 PM Age: 24 years old Clinical indication: Pain and injury or trauma; Injury history: Status post epidural for child <24 hours; Initial encounter; Puncture; Low back pain; Additional info: Severe pain to epidural site TECHNIQUE: Imaging protocol: Multiplanar magnetic resonance images of the lumbar spine without contrast. COMPARISON: No relevant prior studies available. FINDINGS: Vertebral body height and AP alignment is preserved. Conus medullaris terminates L1. No epidural fluid collection. There is nonspecific edema involving the posterior subcutaneous soft tissues. L1-L2: No central or foraminal stenosis. L2-L3: Mild facet joint arthropathy without central or foraminal stenosis. L3-L4: Mild facet joint arthropathy without central or foraminal stenosis. L4-L5: Mild facet joint arthropathy without central or foraminal stenosis. L5-S1: No central or foraminal stenosis. IMPRESSION: 1. No acute abnormality involving the lumbar spine. 2. Incomplete visualization of right sacral edema. Dedicated imaging may be considered. Differential considerations include post traumatic sequelae, infectious or inflammatory sacroiliitis or possibly neoplasia. 3. Nonspecific edema involving the posterior subcutaneous soft tissues. Electronically signed by: Wojciech Eduardo On 09/24/2019 19:34:38 PM
== END 2019-09-24 21:00 | disposition home or self-care (01) | DRG 560 ==
LOC: M LDO 05:00 → M LDI 05:12 → M OBS 13:10
PROVIDERS: ADMIT Obstetrics & Gynecology; ATTEND Obstetrics & Gynecology
PROC: 10E0XZZ Delivery of Products of Conception, External Approach (ICD-10-PCS; principal; 2019-09-23)
PROC: 10907ZC Drainage of Amniotic Fluid, Therapeutic from Products of Conception, Via Natural or Artificial Opening (ICD-10-PCS; 2019-09-23)
DX: O48.0 Post-term pregnancy (principal); E66.9 Obesity, unspecified; Z37.0 Single live birth; Z3A.40 40 weeks gestation of pregnancy; F17.200 Nicotine dependence, unspecified, uncomplicated; O99.334 Smoking (tobacco) complicating childbirth; O99.214 Obesity complicating childbirth

== ENCOUNTER 2022-05-26 19:46 | Emergency (ER) | payer OTHER ==
[~2022-05-26] VITALS: Ht 157.5 cm; Wt 84.5 kg
[~2022-05-26 19:46] MED LIST changes: +ACYC1TAB4 PO; -ACYC800T PO; +CALC-362 PO; -CHEW500C2 PO; +OMEP40CA4 PO; -OMEP40CA97 PO
[2022-05-26 19:47] VITALS: BP 126/71
== END 2022-05-26 20:22 | disposition left against medical advice (07) ==
LOC: M ED 19:46
DX: Z53.21 Procedure and treatment not carried out due to patient leaving prior to being seen by health care provider (principal)

== ENCOUNTER 2024-04-15 18:57 | Emergency (ER) | payer OTHER ==
[~2024-04-15] VITALS: Ht 157.5 cm; Wt 74.2 kg
[2024-04-15] MEDS ORDERED: NS 1,000 ML IV ONE (19:35)
[2024-04-15] MEDS ORDERED: ACETAMINOPHEN *IV* 1,000 MG in IV 1 EA IV ONE (19:35)
[2024-04-15] MEDS ORDERED: METOCLOPRAMIDE INJ 10MG/2ML VIAL IV ONE (19:35)
[2024-04-15 20:44] VITALS: TEMP 97.5
[2024-04-15 21:03] VITALS: BP 124/68; O2SAT 99
== END 2024-04-15 20:57 | disposition left against medical advice (07) ==
LOC: M ED 18:57
DX: O00.01 Abdominal pregnancy with intrauterine pregnancy (principal); O26.891 Other specified pregnancy related conditions, first trimester; R10.9 Unspecified abdominal pain; F17.200 Nicotine dependence, unspecified, uncomplicated; Z87.442 Personal history of urinary calculi; Z3A.01 Less than 8 weeks gestation of pregnancy; Z79.1 Long term (current) use of non-steroidal anti-inflammatories (NSAID); Z79.899 Other long term (current) drug therapy; Z53.9 Procedure and treatment not carried out, unspecified reason

== ENCOUNTER 2024-11-26 22:02 | Outpatient (CLI) | payer OTHER ==
[~2024-11-26] VITALS: Ht 157.5 cm; Wt 101.1 kg
[~2024-11-26 22:02] MED LIST changes: -CYCL5TAB; +CYCL5TAB4
[2024-11-26 22:16] VITALS: BP 118/62; O2SAT 99
[2024-11-26] MEDS ORDERED: OMEP10CASR PO (22:17)
[2024-11-26] MEDS ORDERED: HOME MED LIST COMPLETE! XX SCH (22:20)
== END 2024-11-27 00:02 | disposition home or self-care (01) ==
LOC: M LDO 22:02
PROVIDERS: ATTEND Obstetrics & Gynecology
DX: O47.1 False labor at or after 37 completed weeks of gestation (principal); O99.333 Smoking (tobacco) complicating pregnancy, third trimester; F17.210 Nicotine dependence, cigarettes, uncomplicated; O99.613 Diseases of the digestive system complicating pregnancy, third trimester; K50.90 Crohn's disease, unspecified, without complications; Z3A.38 38 weeks gestation of pregnancy
CPT/HCPCS: 59025; G0463